=== PATIENT | male | born 1940 | race Caucasian/White ===

== ENCOUNTER → 2017-03-26 | Day surgery (SDC) | payer OTHER ==
[2017-03-09 08:09] VITALS: Ht 177.8 cm; Wt 102.3 kg
[~2017-03-26] VITALS: Ht 177.8 cm; Wt 102.3 kg
[~2017-03-26] MED LIST: 500ML BSS 0.3ML EPI 1:1000PF IRRIG ONE; ACETAMINOPHEN 325 MG TAB PO PRN; ALLO100T PO; AMLO-110 PO; AMR2 PO; AMVISC PLUS 0.8ML SYRINGE INT OCU ONE; ATOR-24 PO; ATROPINE SULFATE 0.1 MG/ML 5ML SYR IV PRN; BRIMONIDINE TART 0.2% OP SOLN PER DROP CHARGE ONE; BSS FLUSH ONE; CMD5 PO; CYAN10005 PO; EMPA1TAB3 PO; ENDOCOAT 0.85ML SYRINGE INT OCU ONE; ENOX80IN SQ; EpHEDrine SULFATE INJ 50 MG/ML AMP IV PRN; EpINEphrine INJ 1MG/ML AMP 1 MG/ML AMP ONE; FERR1TAB13 PO; FURO40TA3 PO; LACTATED RINGER'S 1000ML 500 ML IV SCH; LIDOCAINE 4% OP SOLN DROP CHARGE ONE; LIDOCAINE 4% OP SOLN DROP CHARGE OPR SCH; LIDOCAINE HCL 1% MPF 2 ML VIAL ONE; LISI-792 PO; METF1000 PO; MIDAZOLAM HCL 1 MG/ML 2ML VIAL ONE; MOXIFLOXACIN OPH SOLN PER DROP CHARGE ONE; MULTCAP33 PO; NADO40TA PO; NIAC500T11 PO; ONDANSETRON INJ 2 MG/ML 2 ML VIAL IV PRN; POVIDONE-IODINE OP SOLN 30 ML BTL ONE; PRED1SUS3 OPL; PROPARACAINE 0.5% OP SOLN PER DROP CHARGE OPR SCH; SIMV20TA5 PO; SITA100T3 PO; TOBRAMYCIN/DEXAMETHASONE OPH OINT PER APPLN CHARGE ONE; WARF5TAB7 PO
[2017-03-26] MEDS: PHENYLEPHRINE HCL 2.5% OP SOLN PER DROP CHARGE OPR SCH ×2 (07:12→07:17)
[2017-03-26] MEDS: TROPICAMIDE 1% OP SOLN PER DROP CHARGE OPR SCH ×2 (07:13→07:18)
[2017-03-26] MEDS: CYCLOPENTOLATE HCL 1% OP SOLN PER DROP CHARGE OPR SCH ×2 (07:14→07:19)
[2017-03-26] MEDS: KETOROLAC 0.5% OP SOLN PER DROP CHARGE OPR SCH ×2 (07:15→07:20)
[2017-03-26] MEDS: MOXIFLOXACIN OPH SOLN PER DROP CHARGE OPR SCH ×3 (07:16→08:14)
--- NOTE | 2017-03-26 07:34 | History & Physical Bridge - [place] ---
H&P Re-Evaluation Bridge Note: I have examined the patient, reviewed the History & Physical and in the interval since the performance of the History & Physical I have noted the following changes of clinical significance: No changes noted
--- NOTE | 2017-03-26 08:27 | Discharge Instructions-SurgCtr ---
Discharge Instructions Date of Service Mar 26, 2017. Visit Reason for Visit: Cataract Right Eye Discharge Discharge Diagnosis / Problem: cataract right eye Discharge Goals Goal(s): Improve function Medications Stopped Medications Name(s): metformin stopped 3 days ago Activity Recommendations Activity Limitations: per Instructions/Follow-up section Lifting Limitations: no more than 5 pounds Anesthesia . Post Anesthesia Instructions: If you have had General Anesthesia or IV Sedation: * Do not drive today. * Resume driving when surgeon permits. * Do not make important decisions or sign legal documents today. * Call surgeon for: 1. Temperature elevations greater than 101 degrees F. 2. Uncontrollable pain. 3. Excessive bleeding. 4. Persistent nausea and vomiting. 5. Medication intolerance (nausea, vomiting or rash). * For nausea and vomiting use only clear liquids such as: tea, soda, bouillon until nausea subsides, then gradually increase diet as tolerated. * If you have any concerns or questions, call your surgeon's office. If physician is unavailable and it is an emergency, call 911 or go to the nearest emergency room. . Instructions / Follow-Up Instructions / Follow-Up ACTIVITY RECOMMENDATIONS: * Light activities * You may walk outside, read, watch television. * Mild irritation and blurred vision are common for the first few days, redness around the white part of the eye is common. MEDICATIONS: Resume previous medications unless instructed otherwise by your surgeon. Eye drops (today and tomorrow): Gatifloxacine - one drop in operative eye every 2 hours while awake Prednisolone 1% - one drop in operative eye every 2 hours while awake Bromfenac - one drop in operative eye once daily SPECIAL CARE INSTRUCTIONS: * If any problems or concerns, please call Dr. Dominique's office at . * Keep plastic shield taped over eye to sleep at night. * Keep plastic shield taped over eye except to administer eye drops. * Keep plastic shield on until office visit the following day. FOLLOW UP VISIT: Follow-up with Dr. Dominique in the [place] office as scheduled. If not already scheduled, please call the office at . Diet Recommendations Home Diet: resume previous diet Procedures Procedures Performed: Right Cataract Phacoemulsification With Intraocular Lens Implant Pending Studies Studies pending at discharge: no Medical Emergencies . Who to Call and When: Medical Emergencies: If at any time you feel your situation is an emergency, please call 911 immediately. . Non-Emergent Contact Non-Emergency issues call your: Clinical Documentation Manager . . "Provider Documentation" section prepared by Oswaldo Dominique. .
--- NOTE | 2017-03-26 08:29 | [facility] Operative Report ---
Operative Report Operative Date Mar 26, 2017. Pre-Operative Diagnosis Cataract Right Eye Post-Operative Diagnosis same as preop Procedure(s) Performed Right Cataract Phacoemulsification With Intraocular Lens Implant Surgeon Dr. Dominique Field Horticultural Specialty Grower Surgeon(s) none Estimated Blood Loss 0ml Findings cataract right eye Fluids (cc crystalloids) see anesthesia record Specimens none per surgeon Drains none Anesthesia local with sedation Complication(s) None Disposition Recovery Room / PACU Implants mx60 20.0 Indications decreased vision right eye Description of Procedure After informed consent was obtained in the holding area the patient was wheeled back to the operating room where cardiac monitoring leads and oxygen by nasal cannula was administered by Anesthesia. Gentle IV sedation was given, and the patient's right eye was prepped and draped in usual sterile fashion. A wire lid speculum was placed into the right eye and the operating microscope was swung into position. Using 0.12 forceps and a Supersharp blade a paracentesis port was made 2 o'clock hours away from the 9 o'clock position of the patient's right eye. 1% non-preserved Lidocaine was then injected into the anterior chamber for anesthesia. A 2.0 mm keratotome blade was then used to make a shelved clear corneal incision at the 9 o'clock position of the right eye. Amvisc was injected into the anterior chamber and a cystotome and Utrata forceps were used to perform a curvilinear capsulorrhexis. BSS on a hydrodissection cannula was used to hydrodissect the lens nucleus away from the capsular bag. The phacoemulsification handpiece was then used in a stop and chop fashion to remove the lens nucleus. The irrigation and aspiration handpiece was then used to remove the residual cortical material. Amvisc was injected into the capsular bag and anterior chamber and a Bausch & Lomb MX60 20.0 Diopter intraocular lens was injected into the capsular bag. Irrigation and aspiration handpiece was used to remove the residual viscoelastic material. The wounds were hydrated and noted to be watertight. The wire lid speculum was removed from the eye. Vigamox, Brimonidine, and TobraDex ointment were placed on the eye and it was shielded. It should be noted that EndoCoat was used extensively during the case to protect the cornea endothelium. DISPOSITION: The patient tolerated the procedure well and was wheeled to the post anesthesia care unit in stable condition. I attest to the content of the Intraoperative Record and any orders documented therein. Any exceptions are noted below. I attest to the content of the Intraoperative Record and any orders documented therein. Any exceptions are noted below.
--- NOTE | 2017-03-26 08:55 | Anesthesia Progress Nt - [facility] ---
Anesthesia Post Op Note Date & Time Mar 26, 2017 at 08:54 Vital Signs Pain Intensity: 0 Vital Signs Past 12 Hours Date Time Temp Pulse Resp B/P (MAP) Pulse Ox O2 Delivery O2 Flow Rate FiO2 03/26/17 08:25 36.5 56 16 129/53 (78) 97 Room Air 03/26/17 07:22 36.8 61 16 153/73 (99) 97 Room Air Notes Mental Status: alert / awake / arousable, participated in evaluation Pt Amnestic to Procedure: Yes Nausea / Vomiting: adequately controlled Pain: adequately controlled Airway Patency, RR, SpO2: stable & adequate BP & HR: stable & adequate Hydration State: stable & adequate Anesthetic Complications: no major complications apparent
[2017-03-26 09:10] VITALS: BP 13/64; PULSE 62; O2SAT 97
== END | disposition home or self-care (01) ==
LOC: X.SURG 06:40
PROVIDERS: ATTEND Ophthalmology
DX: H25.11 Age-related nuclear cataract, right eye (principal); I10 Essential (primary) hypertension; E78.00 Pure hypercholesterolemia, unspecified; E11.9 Type 2 diabetes mellitus without complications; Z79.01 Long term (current) use of anticoagulants; Z79.4 Long term (current) use of insulin; Z79.899 Other long term (current) drug therapy

== ENCOUNTER → 2017-04-16 | Day surgery (SDC) | payer OTHER ==
[2017-04-10 14:05] VITALS: Ht 177.8 cm; Wt 102.3 kg
[~2017-04-16] VITALS: Ht 177.8 cm; Wt 102.3 kg
[~2017-04-16] MED LIST changes: +FENTANYL CITRATE INJ 50 MCG/1 ML 2 ML VIAL ONE; +LIDOCAINE 4% OP SOLN DROP CHARGE OPL SCH; -LIDOCAINE 4% OP SOLN DROP CHARGE OPR SCH; -ONDANSETRON INJ 2 MG/ML 2 ML VIAL IV PRN; +PROPARACAINE 0.5% OP SOLN PER DROP CHARGE OPL SCH; -PROPARACAINE 0.5% OP SOLN PER DROP CHARGE OPR SCH; -SIMV20TA5 PO
[2017-04-16] MEDS: PHENYLEPHRINE HCL 2.5% OP SOLN PER DROP CHARGE OPL SCH ×2 (06:45→06:51)
[2017-04-16] MEDS: TROPICAMIDE 1% OP SOLN PER DROP CHARGE OPL SCH ×2 (06:46→06:51)
[2017-04-16] MEDS: CYCLOPENTOLATE HCL 1% OP SOLN PER DROP CHARGE OPL SCH ×2 (06:47→06:52)
[2017-04-16] MEDS: KETOROLAC 0.5% OP SOLN PER DROP CHARGE OPL SCH ×2 (06:48→06:53)
[2017-04-16] MEDS: MOXIFLOXACIN OPH SOLN PER DROP CHARGE OPL SCH ×2 (06:49→06:59)
[2017-04-16 08:11] VITALS: TEMP 36.5
--- NOTE | 2017-04-16 08:12 | Discharge Instructions-SurgCtr ---
Discharge Instructions Date of Service Apr 16, 2017. Visit Reason for Visit: Cataract Left Eye Discharge Discharge Diagnosis / Problem: cataract left eye Discharge Goals Goal(s): Improve function Medications Stopped Medications Name(s): Metformin, last dose 04/13/17 Activity Recommendations Activity Limitations: per Instructions/Follow-up section Lifting Limitations: no more than 5 pounds Anesthesia . Post Anesthesia Instructions: If you have had General Anesthesia or IV Sedation: * Do not drive today. * Resume driving when surgeon permits. * Do not make important decisions or sign legal documents today. * Call surgeon for: 1. Temperature elevations greater than 101 degrees F. 2. Uncontrollable pain. 3. Excessive bleeding. 4. Persistent nausea and vomiting. 5. Medication intolerance (nausea, vomiting or rash). * For nausea and vomiting use only clear liquids such as: tea, soda, bouillon until nausea subsides, then gradually increase diet as tolerated. * If you have any concerns or questions, call your surgeon's office. If physician is unavailable and it is an emergency, call 911 or go to the nearest emergency room. . Instructions / Follow-Up Instructions / Follow-Up ACTIVITY RECOMMENDATIONS: * Light activities * You may walk outside, read, watch television. * Mild irritation and blurred vision are common for the first few days, redness around the white part of the eye is common. MEDICATIONS: Resume previous medications unless instructed otherwise by your surgeon. Eye drops (today and tomorrow): Gatifloxacin - one drop in operative eye every 2 hours while awake Prednisolone 1% - one drop in operative eye every 2 hours while awake Bromfenac - one drop in operative eye once daily SPECIAL CARE INSTRUCTIONS: * If any problems or concerns, please call Dr. Dominique's office at . * Keep plastic shield taped over eye to sleep at night. * Keep plastic shield taped over eye except to administer eye drops. * Keep plastic shield on until office visit the following day. FOLLOW UP VISIT: Follow-up with Dr. Dominique in the [place] office as scheduled. If not already scheduled, please call the office at . Diet Recommendations Home Diet: resume previous diet Procedures Procedures Performed: Left Cataract Phacoemulsification With Intraocular Lens Implant With Anterior Vitrectomy Pending Studies Studies pending at discharge: no Medical Emergencies . Who to Call and When: Medical Emergencies: If at any time you feel your situation is an emergency, please call 911 immediately. . Non-Emergent Contact Non-Emergency issues call your: Customer Insight Analyst . . "Provider Documentation" section prepared by Oswaldo Dominique. .
--- NOTE | 2017-04-16 08:17 | [facility] Operative Report ---
Operative Report Operative Date Apr 16, 2017. Pre-Operative Diagnosis Left Eye Cataract Post-Operative Diagnosis Same Procedure(s) Performed Left Cataract Phacoemulsification With Intraocular Lens Implant With Anterior Vitrectomy Surgeon Dr. Monique Dominique Hospice Consultant Surgeon(s) None Estimated Blood Loss 0 Findings cataract left eye, posterior capsular wrent left eye Fluids (cc crystalloids) see anesthesia record Specimens None Drains none Anesthesia local with sedation Complication(s) None Disposition Recovery Room / PACU Implants LI61AO 18.5 Indications decreased vision left eye Description of Procedure After informed consent was obtained in the holding area the patient was wheeled back to the operating room where cardiac monitoring leads and oxygen by nasal cannula was administered by Anesthesia. Gentle IV sedation was given, and the patient's left eye was prepped and draped in usual sterile fashion. A wire lid speculum was placed into the left eye and the operating microscope was swung into position. Using 0.12 forceps and a Supersharp blade a paracentesis port was made 2 o'clock hours away from the 3 o'clock position of the patient's left eye. 1% non-preserved Lidocaine was then injected into the anterior chamber for anesthesia. A 2.0 mm keratotome blade was then used to make a shelved clear corneal incision at the 3 o'clock position of the left eye. Amvisc was injected into the anterior chamber and a cystotome and Utrata forceps were used to perform a curvilinear capsulorrhexis. BSS on a hydrodissection cannula was used to hydrodissect the lens nucleus away from the capsular bag. The phacoemulsification handpiece was then used in a stop and chop fashion to remove the lens nucleus. The irrigation and aspiration handpiece was then used to remove the residual cortical material. Amvisc was injected into the capsular bag and anterior chamber and a Bausch & Lomb MX60 19.5 Diopter intraocular lens was injected into the capsular bag. Irrigation and aspiration handpiece was used to remove the residual viscoelastic material. At this point a posterior capsular wrent was noted. The eye was filled with Amvisc, the primary incision and paracentesis were enlarged, and the lens cutting system was used to remove the lens from the eye. An anterior vitrectomy was carried out and the eye was refilled with Amvisc. A B&L LI61AO 18.5 diopter lens was then injected into the sulcus and optic captured by the anterior capsular rim. I&A handpiece was used to remove the viscoelastic material from the eye. The wounds were hydrated and noted to be water tight. Resure sealant was placed over the incisions for extra integrity. The wire lid speculum was removed from the eye. Vigamox, Brimonidine, and TobraDex ointment were placed on the eye and it was shielded. It should be noted that EndoCoat was used extensively during the case to protect the cornea endothelium. DISPOSITION: The patient tolerated the procedure well and was wheeled to the post anesthesia care unit in stable condition. I attest to the content of the Intraoperative Record and any orders documented therein. Any exceptions are noted below. I attest to the content of the Intraoperative Record and any orders documented therein. Any exceptions are noted below.
--- NOTE | 2017-04-16 08:22 | Anesthesia Progress Nt - [facility] ---
Anesthesia Post Op Note Date & Time Apr 16, 2017 at 08:22 Vital Signs Pain Intensity: 0 Vital Signs Past 12 Hours Date Time Temp Pulse Resp B/P (MAP) Pulse Ox O2 Delivery O2 Flow Rate FiO2 04/16/17 08:11 36.5 63 16 155/72 (99) 95 Room Air 04/16/17 06:39 36.5 61 18 134/63 (86) 95 Room Air Notes Mental Status: alert / awake / arousable, participated in evaluation Pt Amnestic to Procedure: Yes Nausea / Vomiting: adequately controlled Pain: adequately controlled Airway Patency, RR, SpO2: stable & adequate BP & HR: stable & adequate Hydration State: stable & adequate Anesthetic Complications: no major complications apparent
[2017-04-16 08:39] VITALS: BP 127/66; PULSE 64; O2SAT 95
== END | disposition home or self-care (01) ==
LOC: X.SURG 06:27
PROVIDERS: ATTEND Ophthalmology
DX: H25.12 Age-related nuclear cataract, left eye (principal); Z96.1 Presence of intraocular lens; E11.9 Type 2 diabetes mellitus without complications; I10 Essential (primary) hypertension; Z79.01 Long term (current) use of anticoagulants; Z79.4 Long term (current) use of insulin; Z79.899 Other long term (current) drug therapy

== ENCOUNTER → 2017-05-02 | Day surgery (SDC) | payer OTHER ==
[~2017-05-02] VITALS: Ht 156.2 cm; Wt 102.5 kg
[~2017-05-02] MED LIST changes: -500ML BSS 0.3ML EPI 1:1000PF IRRIG ONE; -ACETAMINOPHEN 325 MG TAB PO PRN; -AMVISC PLUS 0.8ML SYRINGE INT OCU ONE; -ATROPINE SULFATE 0.1 MG/ML 5ML SYR IV PRN; -BRIMONIDINE TART 0.2% OP SOLN PER DROP CHARGE ONE; -BSS FLUSH ONE; -ENDOCOAT 0.85ML SYRINGE INT OCU ONE; -EpHEDrine SULFATE INJ 50 MG/ML AMP IV PRN; -EpINEphrine INJ 1MG/ML AMP 1 MG/ML AMP ONE; -FENTANYL CITRATE INJ 50 MCG/1 ML 2 ML VIAL ONE; -LACTATED RINGER'S 1000ML 500 ML IV SCH; -LIDOCAINE 4% OP SOLN DROP CHARGE ONE; -LIDOCAINE 4% OP SOLN DROP CHARGE OPL SCH; -LIDOCAINE HCL 1% MPF 2 ML VIAL ONE; -MIDAZOLAM HCL 1 MG/ML 2ML VIAL ONE; -MOXIFLOXACIN OPH SOLN PER DROP CHARGE ONE; -POVIDONE-IODINE OP SOLN 30 ML BTL ONE; -PRED1SUS3 OPL; -PROPARACAINE 0.5% OP SOLN PER DROP CHARGE OPL SCH; +PROPOFOL IV EMULSION 10 MG/ML 20 ML VIAL IV ONE; +SODIUM CHLORIDE 0.9% 500ML 500 ML IV ONE; -TOBRAMYCIN/DEXAMETHASONE OPH OINT PER APPLN CHARGE ONE
[2017-05-02 08:47] VITALS: Ht 156.2 cm; Wt 102.5 kg
--- NOTE | 2017-05-02 09:57 | Endo History and Physical ---
History & Physical Date of Service: May 02, 2017. Chief Complaint: BENIGN NEOPLASM COLON Referring Physician: DR VERO HAMROCK History of Present Illness h/o polyps Past Medical History Diabetes, High Cholesterol, Hypertension Past Surgical History Hx Cardiac Surgery: Yes (HEART CATH, NO STENTS) Hx Internal Defibrillator: No Hx Pacemaker: No Hx Abdominal Surgery: Yes (PARKER, I&D ABDOMEN S/P PARKER) Hx of Implantable Prosthesis: No Hx Post-Op Nausea and Vomiting: No Hx Cancer Surgery: No Hx Thoracic Surgery: No Hx Orthopedic: Yes (RT TKA, LOWER BACK) Hx Urinary Tract Surgery: No Family History None Social History Smoking Status: Former Smoker Hx Substance Use: No Hx Alcohol Use: No Allergies Coded Allergies: Exenatide (Verified Adverse Reaction, Mild, GI UPSET, 04/24/17) Current Medications Reported Home Medications Medications Dose Route/Sig Max Daily Dose Days Date Category Dose Instructions Lovenox (Enoxaparin Sodium) 80 Mg/0.8 Ml Inj 100 Mg SQ Q12H 05/02/17 Reported Jardiance (Empagliflozin) 25 Mg Tab 1 Tab PO QAM 04/24/17 Reported Preservision Areds (Multiple Vitamins W/ Minerals) 1 Cap Cap 1 Cap PO BID 04/10/17 Reported Lipitor (Atorvastatin Calcium) 40 Mg Tab 40 Mg PO QAM 04/10/17 Reported Januvia (Sitagliptin Phosphate) 100 Mg Tab 100 Mg PO QAM 03/09/17 Reported Vitamin B-12 (Cyanocobalamin) 1,000 Mcg Tab 1,000 Mcg PO QAM 03/09/17 Reported Norvasc (Amlodipine Besylate) 5 Mg Tab 5 Mg PO QAM 03/09/17 Reported Zyloprim (Allopurinol) 100 Mg Tab 100 Mg PO QAM 03/09/17 Reported Coumadin (Warfarin Sod) 5 Mg Tab 1.5 Tabs PO Sunday03/09/17 Reported Jantoven (Warfarin Sodium) 5 Mg Tab 5 Mg PO 6XWK 03/09/17 Reported SUN,MON,WED,THURS,FRI,SAT Kp Ferrous Sulfate (Ferrous Sulfate) 325 Mg Tab 1 Tab PO BID 03/09/17 Reported Corgard (Nadolol) 40 Mg Tab 40 Mg PO BID 03/09/17 Reported Niacin 500 Mg Tab 500 Mg PO QAM 12/14/14 Reported Glimepiride 2 Mg Tab 2 Mg PO BID 07/19/14 Reported Lasix (Furosemide) 40 Mg Tab 40 Mg PO QAM 02/23/13 Reported Zestril (Lisinopril) 20 Mg Tab 20 Mg PO QAM 02/23/13 Reported Glucophage (Metformin Hcl) 1,000 Mg Tab 1,000 Mg PO BID 02/23/13 Reported Vital Signs Weight (Kilograms): 102.5 Height (Feet): 5 Height (Inches): 1.5 Date Time Temp Pulse Resp B/P (MAP) Pulse Ox O2 Delivery O2 Flow Rate FiO2 05/02/17 08:46 36.8 64 20 146/64 (91) 96 Room Air Physical Exam General Appearance: no apparent distress Respiratory/Chest: Auscultation: breath sounds normal Cardiovascular: Heart Auscultation: RRR Abdomen: Inspection & Palpation: soft Assessment and Plan H/o polyps - cscopy
--- NOTE | 2017-05-02 10:39 | GI REPORT ---
Procedure Date: 05/02/2017 9:46 AM Procedure: Colonoscopy Indications: High risk colon cancer surveillance: Personal history of colonic polyps Medicines: See the Anesthesia note for documentation of the administered medications Complications: No immediate complications. Estimated Blood Loss: Estimated blood loss: none. Procedure: Pre-Anesthesia Assessment: - ASA Grade Assessment: III - A patient with severe systemic disease. After I obtained informed consent, the scope was passed under direct vision. Throughout the procedure, the patient's blood pressure, pulse, and oxygen saturations were monitored continuously. The scope was introduced through the anus and advanced to the cecum, identified by appendiceal orifice and ileocecal valve. The colonoscopy was performed without difficulty. The patient tolerated the procedure well. The quality of the bowel preparation was good. Findings: The perianal and digital rectal examinations were normal. Marked edema and snakeskin appearance to mucosa of entire colon, most prominent in right colon. Appearance consistent with portal colopathy. Numerous telangiectasias throughout the entire colon. There were numerous red nodules throughout the colon, likely vascular malformations or hemangiomas. There was a 2 mm polyp in the sigmoid colon removed by biopsy forceps. Diverticulosis in sigmoid colon. Recommendation: - Consider repeat exam in 2 years for polyp surveillance. - Discharge patient to home. Preeti Randhawa M.D. Preeti Randhawa MD 05/02/2017 10:38:47 AM This report has been signed electronically. Note Initiated On: 05/02/2017 9:46 AM I attest to the content of the Intraoperative Record and orders documented therein, exceptions below
--- NOTE | 2017-05-02 10:41 | Discharge Instructions ---
Endoscopy Patient Instructions Date / Procedure(s) Performed May 02, 2017. Colonoscopy Allergy Information Coded Allergies: Exenatide (Verified Adverse Reaction, Mild, GI UPSET, 04/24/17) Discharge Date / Findings May 02, 2017. Sigmoid polyp, numerous telangiectasias and vasc malformations throughout the colon, portal colopathy, hemorrhoids. Medication Instructions Stopped Medication(s): METFORMIN- LAST DOSE 04/29/27 WARFARIN- LAST DOSE 04/29/17 LOVENOX -LAST DOSE 05/01/27 Resume metformin today. REsume Warfarin and Lovenox tomorrow. Provider Instructions Activity Restrictions - No exercising or heavy lifting for 24 hours. - Do not drink alcohol the day of the procedure. - Do not drive a car or operate machinery until the day after the procedure. - Do not make any important decisions or sign important papers in 24 hours after the procedure. Following Day: - Return to full activity which may include returning to work/school. Diet Start your diet with liquids and light foods (jello, soup, juice, toast). Then eat your usual diet if not nauseated. Treatment For Common After Affects For mild abdominal pain, bloating, or excessive gas: - Rest - Eat lightly - Lie on right side Follow-Up Information Follow-up with DR VERO BUCKLEY as scheduled Anesthesia Information What You Should Know You have had a procedure that required some medicine to reduce anxiety and discomfort. This treatment is called moderate sedation. After receiving the treatment, you may be sleepy, but you will be able to breathe on your own. The effects of the treatment may last for several hours. Follow these instructions along with Activity/Diet recommendations noted above: * Do NOT do anything where dizziness or clumsiness would be dangerous. * Rest quietly at home today, then you can be up and about tomorrow. * Have a responsible person stay with you the rest of today. * You may have had an I.V. today. If so, you may take the dressing off later today. Recommendations Call your doctor if: * Trouble breathing * Continuous vomiting for more than 24 hours * Temperature above 101 degrees * Severe abdominal pain or bloating * Pain not relieved by pain medicine ordered * There is increased drainage or redness from any incision * A large amount of rectal bleeding greater than 2-3 tablespoons. (If you had a polyp/s removed or have hemorrhoids, a small amount of blood - from the rectum is to be expected.) * You have any unanswered questions or concerns. IN THE EVENT OF A SERIOUS EMERGENCY, GO TO THE NEAREST EMERGENCY ROOM Your discharge instructions were prepared by provider Preeti Smith. Patient Instructions Signature Page Tarik Weinstein Patient (or Guardian) Signature/Date: I have read and understand the instructions given to me by my caregivers. Caregiver/RN/Doctor Signature/Date: The above-named patient and/or guardian has received patient instructions on this date. + Original Patient Signature Page (only) stays with chart. Please make copy for patient.
--- NOTE | 2017-05-02 10:53 | Anesthesiology Progress Note ---
Anesthesia Post Op Note Date & Time May 02, 2017 at 10:53 Vital Signs Pain Intensity: 0 Vital Signs Past 12 Hours Date Time Temp Pulse Resp B/P (MAP) Pulse Ox O2 Delivery O2 Flow Rate FiO2 05/02/17 10:42 62 16 136/62 (86) 96 Room Air 05/02/17 10:27 64 16 101/50 (67) 96 Room Air 05/02/17 08:46 36.8 64 20 146/64 (91) 96 Room Air Notes Mental Status: alert / awake / arousable, participated in evaluation Pt Amnestic to Procedure: Yes Nausea / Vomiting: adequately controlled Pain: adequately controlled Airway Patency, RR, SpO2: stable & adequate BP & HR: stable & adequate Hydration State: stable & adequate Anesthetic Complications: no major complications apparent
[2017-05-02 10:57] VITALS: BP 145/73; PULSE 62; O2SAT 97
== END | disposition home or self-care (01) ==
LOC: C.GI 08:23
PROVIDERS: ATTEND Internal Medicine Gastroenterology
DX: Z12.11 Encounter for screening for malignant neoplasm of colon (principal); Z86.010 Personal history of colon polyps; K57.30 Diverticulosis of large intestine without perforation or abscess without bleeding; D12.5 Benign neoplasm of sigmoid colon; I78.1 Nevus, non-neoplastic; E11.9 Type 2 diabetes mellitus without complications; E78.00 Pure hypercholesterolemia, unspecified; I10 Essential (primary) hypertension; F17.200 Nicotine dependence, unspecified, uncomplicated; Z79.01 Long term (current) use of anticoagulants; Z79.899 Other long term (current) drug therapy; Z79.84 Long term (current) use of oral hypoglycemic drugs

== ENCOUNTER 2017-08-04 20:39 | Emergency (ER) | payer OTHER ==
[~2017-08-04] VITALS: Ht 177.8 cm; Wt 101.5 kg
[~2017-08-04 20:39] MED LIST changes: -AMLO-110 PO; +AMLO5TAB3 PO; -PROPOFOL IV EMULSION 10 MG/ML 20 ML VIAL IV ONE; -SODIUM CHLORIDE 0.9% 500ML 500 ML IV ONE
[2017-08-04 20:44] VITALS: TEMP 36.9; Ht 177.8 cm; Wt 101.5 kg
[2017-08-04] MEDS ORDERED: METOCLOPRAMIDE HCL INJ 5 MG/ML 2 ML VIAL IV STA (20:57)
[2017-08-04] MEDS ORDERED: DiphenhydrAMINE HCL 50 MG/ML VIAL IV STA (20:57)
[2017-08-04] MEDS ORDERED: SODIUM CHLORIDE 0.9% 500ML 500 ML IV STA (20:57)
--- NOTE | 2017-08-04 21:17 | EMERGENCY ROOM VISIT NOTE ---
History Report prepared by Rosas: Donell Anthony Under the Supervision of: Dr. Roldan Reese M.D. First contact with patient: 20:51 Chief Complaint: HEADACHE Stated Complaint: HEADACHE, EYE PAIN AND JAW History of Present Illness The patient is a 76 year old male who presents to the Emergency Room with complaints of intermittent headaches for the past 4 weeks. He describes the pain as a 5/10 in severity. He states the headache is on the left side of his face and extends down below his eye. Patient states the pain is better during than the day than at night. He has associated symptoms of intermittent diarrhea. He denies nausea, vomiting, shortness of breath, fevers, dizziness, vision changes, painful urination, bowel movement changes, and chills. He states he was at [facility] in [place] 3 days ago for the same symptoms. He was discharged on Tramadol, which he has not taken yet. Patient states they gave him a CT scan in [place] that came back normal. ?Dx of trigeminal neuralgia. He came to the ER today because he wanted a second opinion. He denies a history of headaches. He states he currently takes Lasix and Coumadin. He has been on Coumadin for a couple of years. Pertinent medical history includes a blood clot in his intestine. Pertinent surgical history includes a cholecystectomy 11 years ago. Patient states he has an appointment with his PCP in 4 days. Source of History: patient Onset: 4 weeks ago Position: head Symptom Intensity: 5/10 Timing: intermittent Associated Symptoms: + diarrhea, No fevers, No chills, No SOB, No nausea, No vomiting Note: Patient denies painful urination, dizziness, and vision changes. Review of Systems See HPI for pertinent positives and negatives. A total of ten systems were reviewed and were otherwise negative. Past Medical & Surgical Medical Problems: (1) DM (diabetes mellitus) (2) HTN (hypertension) Family History Diabetes mellitus Hypertension Social History Smoking Status: Never Smoker Alcohol Use: occasionally Marital Status: Housing Status: lives with significant other Occupation Status: employed Current/Historical Medications Scheduled Allopurinol (Zyloprim), 100 MG PO QAM Amlodipine (Norvasc), 5 MG PO QAM Atorvastatin (Lipitor), 40 MG PO QAM Cyanocobalamin (Vitamin B-12), 1,000 MCG PO QAM Empagliflozin (Jardiance), 25 MG PO QAM Ferrous Sulfate (Kp Ferrous Sulfate), 325 MG PO BID Furosemide (Lasix), 40 MG PO QAM Gabapentin (Gabapentin), 1 CAP PO TID Glimepiride (Glimepiride), 2 MG PO BID Lisinopril (Zestril), 20 MG PO QAM Metformin Hcl (Glucophage), 1,000 MG PO BID Multiple Vitamins W/ Minerals (Preservision Areds), 1 CAP PO BID Nadolol (Corgard), 40 MG PO BID Niacin (Niacin), 500 MG PO QAM Sitagliptin Phosphate (Januvia), 100 MG PO QAM Warfarin Sod (Jantoven), 5 MG PO 3XWK Warfarin Sod (Coumadin), 7.5 MG PO 4XWK Allergies Coded Allergies: Exenatide (Verified Adverse Reaction, Mild, GI UPSET, 08/04/17) Physical Exam Vital Signs Date Time Temp Pulse Resp B/P (MAP) Pulse Ox O2 Delivery O2 Flow Rate FiO2 08/04/17 23:12 60 18 115/63 99 Room Air 08/04/17 21:47 72 18 121/55 94 Room Air 08/04/17 20:44 36.9 76 18 154/69 96 Room Air Physical Exam GENERAL: Awake, alert, uncomfortable, in no distress HENT: Normocephalic, atraumatic. Oropharynx unremarkable. Dried mucous membranes. EYES: Normal conjunctiva. Sclera non-icteric. NECK: Supple. No nuchal rigidity. FROM. No JVD. RESPIRATORY: Clear to auscultation. CARDIAC: Regular rate, normal rhythm. Extremities warm and well perfused. Pulses equal. ABDOMEN: Soft, non-distended. No tenderness to palpation. No rebound or guarding. No masses. RECTAL: Deferred. MUSCULOSKELETAL: Chest examination reveals no tenderness. The back is symmetrical on inspection without obvious abnormality. There is no CVA tenderness to palpation. No joint edema. LOWER EXTREMITIES: Calves are equal size bilaterally and non-tender. No edema. No discoloration. NEURO: Normal sensorium. No sensory or motor deficits noted. SKIN: No rash or jaundice noted. Medical Decision & Procedures Laboratory Results 08/04/17 21:29 Red Blood Count 3.85, Mean Corpuscular Volume 86.2, Mean Corpuscular Hemoglobin 27.8, Mean Corpuscular Hemoglobin Concent 32.2, Mean Platelet Volume 10.3, Neutrophils (%) (Auto) 73.0, Lymphocytes (%) (Auto) 14.5, Monocytes (%) (Auto) 10.6, Eosinophils (%) (Auto) 1.4, Basophils (%) (Auto) 0.1, Neutrophils # (Auto ) 5.66, Lymphocytes # (Auto) 1.12, Monocytes # (Auto) 0.82, Eosinophils # (Auto ) 0.11, Basophils # (Auto) 0.01 08/04/17 21:29 Test 08/04/17 21:29 White Blood Count 7.75 K/uL (4.8-10.8) Red Blood Count 3.85 M/uL (4.7-6.1) Hemoglobin 10.7 g/dL (14.0-18.0) Hematocrit 33.2 % (42-52) Mean Corpuscular Volume 86.2 fL (80-100) Mean Corpuscular Hemoglobin 27.8 pg (25-34) Mean Corpuscular Hemoglobin Concent 32.2 g/dl (32-36) Platelet Count 109 K/uL (130-400) Mean Platelet Volume 10.3 fL (7.4-10.4) Neutrophils (%) (Auto) 73.0 % Lymphocytes (%) (Auto) 14.5 % Monocytes (%) (Auto) 10.6 % Eosinophils (%) (Auto) 1.4 % Basophils (%) (Auto) 0.1 % Neutrophils # (Auto) 5.66 K/uL (1.4-6.5) Lymphocytes # (Auto) 1.12 K/uL (1.2-3.4) Monocytes # (Auto) 0.82 K/uL (0.11-0.59) Eosinophils # (Auto) 0.11 K/uL (0-0.5) Basophils # (Auto) 0.01 K/uL (0-0.2) RDW Standard Deviation 57.9 fL (36.4-46.3) RDW Coefficient of Variation 18.6 % (11.5-14.5) Immature Granulocyte % (Auto) 0.4 % Immature Granulocyte # (Auto) 0.03 K/uL (0.00-0.02) Prothrombin Time 14.1 SECONDS (9.0-12.0) Prothromb Time International Ratio 1.4 (0.9-1.1) Anion Gap 10.0 mmol/L (3-11) Est Creatinine Clear Calc Drug Dose 75.1 ml/min Estimated GFR () 82.6 Estimated GFR (Non- 71.2 BUN/Creatinine Ratio 28.1 (10-20) Calcium Level 8.7 mg/dl (8.5-10.1) Laboratory results reviewed by me Medications Administered Medications (Trade) Dose Ordered Sig/Akash Route Start Time Stop Time Status Last Admin Dose Admin Metoclopramide HCl (Reglan Inj) 10 mg NOW STAT IV 08/04/17 20:57 08/04/17 21:11 DC 08/04/17 21:31 10 MG Diphenhydramine HCl (Benadryl Inj) 25 mg NOW STAT IV 08/04/17 20:57 08/04/17 21:11 DC 08/04/17 21:31 25 MG Sodium Chloride 500 ml @ 999 mls/hr Q31M STAT IV 08/04/17 20:57 08/04/17 21:27 DC 08/04/17 21:31 999 MLS/HR Gabapentin (Neurontin Tab) 300 mg NOW STAT PO 08/04/17 23:11 08/04/17 23:13 DC 08/04/17 23:29 300 MG ED Course 2054: The patient was evaluated in room B2. A complete history and physical exam was performed. 2306: I reassessed the patient who is resting comfortably. 2334: I reevaluated the patient. Discussed results and discharge instructions. He verbalized understanding and agreement. The patient is ready for discharge. Medical Decision I reviewed the patient's past medical history, medications, and the nursing notes as described above. Differential Diagnosis: Tension headache, trigeminal neuralgia, migraine headache The patient is a 76 y/o gentlemen with a pmhx of portal vein thrombosis who presents to the emergency department with persistent daily left sided headaches per HPI. Of note was seen at [place] ED for same sx and had negative CT head and had ?dx of trigeminal neuralgia. He reports stopping his coumadin because he understood that is was suggested on his ED visit that his JOHNS might have also been due to his "coumadin level being too high". On arrival the patient is mildly uncomfortabel but in NAD, AFVSS. Neuro intact. No temporal ttp. Given patient's recent negative CT, no indication for further imaging at this time. Of note, patient denies "thunderclap" onset thus SAH not likely. INR 1.4 insetting of patient holding his coumadin. Advised to resume. Labs otherwise unremarkable. Patient feeling improved with migraine cocktail. BuN/cr > 20 suggesting possible mild dehydration in the setting of lasix. Sx possibly related to TGN but unclear. Will attempt trial of gabapentin and patient will discuss further with pcp. Findings and plan for follow-up reviewed with patient. Patient agreeable and d/c'd per discharge instructions. Medication Reconcilliation Current Medication List: was personally reviewed by me Blood Pressure Screening Patient's blood pressure: Normal blood pressure Blood pressure disposition: Did not require urgent referral Impression Primary Impression: Headache Scribe Attestation The scribe's documentation has been prepared under my direction and personally reviewed by me in its entirety. I confirm that the note above accurately reflects all work, treatment, procedures, and medical decision making performed by me. Departure Information Dispostion Home / Self-Care Prescriptions Gabapentin (Gabapentin) 300 Mg Cap 1 CAP PO TID for 14 Days, #42 CAP 1 Refill Prov: Roldan Reese M.D. 08/04/17 Referrals Gricel Whiteside PA-C (PCP) Forms HOME CARE DOCUMENTATION FORM, IMPORTANT VISIT INFORMATION Patient Instructions Headache Pain, My [facility] Additional Instructions Please follow up with your primary care physician on Sunday for re-evaluation and repeat INR check. Your level was low today, 1.4. Resume your Coumadin. The cause of your symptoms is unclear at this time but may be due to trigeminal neuralgia. Otherwise, your exam and lab results did not show signs of an emergent condition at this time. Begin trial of gabapentin for your headache pain. Return to the emergency department for worsening symptoms as described in the accompanying instructions.
[2017-08-04 21:45] LABS: BASO % 0.1 %; BASO ABS # 0.01 K/uL (0-0.2); EOS % 1.4 %; EOS ABS # 0.11 K/uL (0-0.5); HEMATOCRIT 33.2 % (42-52); HEMOGLOBIN 10.7 g/dL (14.0-18.0); IG# 0.03 K/uL (0.00-0.02); LYMPH % 14.5 %; LYMPH ABS # 1.12 K/uL (1.2-3.4); MEAN CELL VOLUME 86.2 fL (80-100); MEAN CORPUSCULAR HEMOGLOBIN 27.8 pg (25-34); MEAN CORPUSCULAR HGB CONC 32.2 g/dl (32-36); MEAN PLATELET VOLUME 10.3 fL (7.4-10.4); MONO % 10.6 %; MONO ABS # 0.82 K/uL (0.11-0.59); NEUT ABS # 5.66 K/uL (1.4-6.5); PLATELET COUNT 109 K/uL (130-400); RED CELL DISTRIBUTION WIDTH CV 18.6 % (11.5-14.5); RED CELL DISTRIBUTION WIDTH SD 57.9 fL (36.4-46.3); WHITE BLOOD COUNT 7.75 K/uL (4.8-10.8)
[2017-08-04 22:02] LABS: INR 1.4 (0.9-1.1)
[2017-08-04 22:14] LABS: CALCIUM 8.7 mg/dl (8.5-10.1); CREATININE 1.03 mg/dl (0.60-1.40); POTASSIUM 4.3 mmol/L (3.5-5.1)
[2017-08-04] MEDS ORDERED: GABAPENTIN 600 MG TAB PO STA (23:11)
[2017-08-04 23:12] VITALS: BP 115/63; PULSE 60; O2SAT 99
[2017-08-04] MEDS ORDERED: GABA-1219 PO (23:14)
== END 2017-08-04 23:36 | disposition home or self-care (01) ==
LOC: C.EDB 20:39
DX: R51 Headache (principal); E11.9 Type 2 diabetes mellitus without complications; I10 Essential (primary) hypertension; Z83.3 Family history of diabetes mellitus; Z82.49 Family history of ischemic heart disease and other diseases of the circulatory system; Z79.01 Long term (current) use of anticoagulants; Z51.81 Encounter for therapeutic drug level monitoring